=== PATIENT | male | born 1965 | race Caucasian/White ===

== ENCOUNTER 2024-07-10 05:44 | Emergency (ER) | payer BC, SELFPAY ==
[2024-07-10 05:47] VITALS: BP 154/90
[2024-07-10 06:15] VITALS: BMI 23.9
[2024-07-10 06:18] VITALS: BP 140/94
--- NOTE | 2024-07-10 06:20 | ED.GENMED ---
History of Present Illness
General
Chief Complaint: Facial Problem
Time Seen by Provider: 07/10/24 06:20
History of Present Illness
History of Present Illness:
TIME OF INITIAL ENCOUNTER: 6:25 AM
HPI: The patient presents due to severe pain to the right side of the face. He has had similar but less severe symptoms in the past and saw an ENT doctor he did a CAT scan he thought maybe symptoms could be related sinusitis. He has not seen a
neurologist in the past he has not been diagnosed with trigeminal neuralgia in the past. He is not taking anything for this pain. He did take 2 Motrin earlier today. The pain worsens with attempted movement of the right side of the face. He
describes the pain as an electrical shock kind of pain. In the past his symptoms were related to eating, his symptoms were set up today by brushing his teeth.
EXAM:
GENERAL: Well appearing but appears somewhat uncomfortable, athletic build
HEENT: Moist oral mucosa, there is no significant tenderness to palpation of the right side of the face however it is noted when he attempts to move the right side of his face he does have increased pain
CARDIOVASCULAR: No murmurs, normal heart rate, regular rhythm, No chest wall tenderness
PULMONARY: No respiratory distress, breath sounds are clear and equal
ABDOMEN: Soft with no peritoneal signs, no tenderness
NEUROLOGIC: Excellent strength all extremities, no coordination deficits
PSYCHIATRIC: Appropriate mental status, normal insight and judgement
EXTREMITIES: Nontender, no edema, moves all extremities equally
SKIN: No rash, no lesions
NUMBER AND COMPLEXITY OF PROBLEMS ADDRESSED AT THE ENCOUNTER
� Chronic conditions affecting care: Hyperlipidemia
� Acute Exacerbation and/or Progression of Chronic Illness: This is an acute problem
� Differential Diagnosis includes: Trigeminal neuralgia, Pierre's palsy, nonspecific neuralgia
AMOUNT AND/OR COMPLEXITY OF DATA TO BE REVIEWED AND ANALYZED
� I performed an independent evaluation of and my interpretation is:
EKG:
CT:
X-rays:
Laboratory Studies: White count 4.7, hemoglobin normal, chemistries unremarkable
Other:
� Review of other/old records: The patient had a colonoscopy in April 2021
� Clinical information was obtained by an independent historian: None needed
� Prescriptions/Medications Considered but not given:
� Further testing considered but not performed:
RISK OF COMPLICATIONS AND/OR MORBIDITY OR MORTALITY OF PATIENT MANAGEMENT
� Social determinants of health affecting care: Lives at home
� Discussion with other providers:
� Escalation of care including admission/observation vs risk of discharge considered: Based on symptoms, suspect trigeminal neuralgia, will start carbamazepine and we also give a dose of Toradol. Basic labs checked as well.
ANY OTHER UPDATES:
7:15 AM: Suspect trigeminal neuralgia. Some improvement on reassessment. I have given him contact information for neurology/neurosurgery.
Past History
Social History
Tobacco: Non-smoker
Personal:
Living: with family
Employment: Employed
Phy Exam
Physical Exam
Physical Exam:
See HPI
Course
Orders/Labs/Results
Orders:
Orders
07/10/24 06:26
Carbamazepine [Tegretol] 200 mg PO NOW STA
Ketorolac [Toradol] 15 mg IV NOW STA
07/10/24 06:27
Complete Blood Count/With Diff Urgent
Comprehensive Metabolic Panel Urgent
Abnormal Lab Results
07/10/24
06:27
WBC 4.7 L 10^3/uL
(4.8-10.8)
MCH 31.1 H pg
(27.0-31.0)
Monocytes % 10.5 H %
(1.7-9.3)
Chloride 97 L mmol/L
(98-107)
Glucose 113 H mg/dl
(70-99)
Albumin 5.1 H g/dl
(3.5-5.0)
07/10/24 06:27
07/10/24 06:27
Vital Signs
Initial and Last Documented VS:
Initial Vital Signs
Temp Pulse Resp BP Pulse Ox
36.7 C 84 22 154/90 100
07/10/24 05:47 07/10/24 05:47 07/10/24 05:47 07/10/24 05:47 07/10/24 05:47
Last Documented Vital Signs
Temp Pulse Resp BP Pulse Ox
36.7 C 84 22 140/94 100
07/10/24 05:47 07/10/24 05:47 07/10/24 05:47 07/10/24 06:18 07/10/24 06:19
*Critical Care Note
Total Time (30-74mins, 75-104mins- exclusive of procedures): Not Applicable
ED Attending Note
-
Portions of this chart may have been created with voice recognition software.� Occasional wrong word or��sound alike� substitutions may have occurred due to the inherent limitations of voice recognition software.
Discharge Plan
Departure
Prescriptions:
No Action
hydrocodone-acetaminophen 7.5 MG/750 MG tablet
1 tab PO Q4HPRN PRN (Reason: PAIN) Qty: 20 0RF
diazepam 5 MG tablet
10 mg PO BIDPRN PRN (Reason: MUSCLE SPASM/TIGHTNESS) Qty: 30 0RF
Referrals:
Rahul Mccarthy MD [Family Provider] -
Interventions
Interventions:
*Risk Screen - Suicide Last Done: 07/10/24 05:47
*General Assessment Last Done: 07/10/24 06:15
*Neglect/Abuse Screening Last Done: 07/10/24 05:47
*ED- Fall Risk Assessment Last Done: 07/10/24 06:15
*ED COVID-19 Vaccine History Last Done: 07/10/24 06:15
ED- Neurological Assessment Last Done: 07/10/24 06:15
ED-Skin Assessment Last Done: 07/10/24 06:15
Discharge Date and Time
Print Language: YORUBA
[2024-07-10] MEDS: TEGRETOL 200 MG PO (06:30)
[2024-07-10] MEDS: TORADOL 15 MG IV (06:30)
[2024-07-10 06:32] LABS: % Basophils 1.1 % (0-2); % Eosinophils 4.4 % (0-6); % Immature Granulocytes 0.2 % (0-0.5); % Lymphocytes 27.2 % (20.5-51.1); % Monocytes 10.5 % (1.7-9.3); % Neutrophils 56.6 % (42.2-75.2); Absolute Basophils 0.1 10^3/uL (0-0.2); Absolute Eosinophils 0.2 10^3/uL (0-0.7); Absolute Lymphocytes 1.3 10^3/uL (1.2-3.4); Absolute Monocytes 0.5 10^3/uL (0.1-0.6); Absolute Neutrophils 2.7 10^3/uL (1.4-6.5); Hematocrit 44.4 % (39.0-52.0); Mean Corp Hgb Conc. 33.8 g/dL (33.0-37.0); Mean Corpuscular Hgb 31.1 pg (27.0-31.0); Mean Corpuscular Volume 92.1 fL (80.0-94.0); Mean Platelet Volume 9.3 fL (7.4-10.4); Nucleated Red Blood Cells % 0 % (-); Platelet Count 210 10^3/uL (130-400); Red Blood Cell Count 4.82 10^6/uL (4.70-6.10); Red Cell Dist. Width 12.1 % (11.5-14.5); White Blood Cell Count 4.7 10^3/uL (4.8-10.8)
[2024-07-10 06:54] LABS: ALT (SGPT) 35 U/L (0-50); AST (SGOT) 29 U/L (17-59); Albumin 5.1 g/dl (3.5-5.0); Alkaline Phosphatase 62 U/L (38-126); Blood Urea Nitrogen 15 mg/dl (9-20); Calcium 9.9 mg/dl (8.4-10.2); Carbon Dioxide 28 mmol/L (22-30); Chloride 97 mmol/L (98-107); Estimated Creatinine Clearance 91 ml/min; Glucose 113 mg/dl (70-99); Potassium 4.2 mmol/L (3.5-5.1); Sodium 135 mmol/L (135-145); Total Protein 7.6 g/dl (6.3-8.2); eGFR > 60.00
== END 2024-07-10 07:42 | disposition home or self-care (01) ==
LOC: EMR 05:44
PROVIDERS: EMERGENCY PHYSICIAN Emergency Medicine; FAMILY PHYSICIAN Internal Medicine
DX: R51.9 Headache, unspecified (principal); E78.5 Hyperlipidemia, unspecified
CPT/HCPCS: 96374; 99284; 80053; 85025

== ENCOUNTER → 2024-09-21 13:07 | Outpatient (REF) | payer BC, SELFPAY | LOC: MRI 13:07 | PROVIDERS: ATTENDING PHYSICIAN Nurse Practitioner Family; FAMILY PHYSICIAN Internal Medicine | DX: G50.0 Trigeminal neuralgia (principal); K11.8 Other diseases of salivary glands | CPT/HCPCS: 70544 ==

== ENCOUNTER → 2024-09-22 10:31 | Outpatient (REF) | payer BC, SELFPAY | LOC: MRI 10:31 | PROVIDERS: ATTENDING PHYSICIAN Nurse Practitioner Family; FAMILY PHYSICIAN Internal Medicine | DX: G50.0 Trigeminal neuralgia (principal); K11.8 Other diseases of salivary glands | CPT/HCPCS: 70553; A9575 ==

== ENCOUNTER → 2025-03-27 12:29 | Outpatient (REF) | payer BC, SELFPAY | LOC: HWEVLT 12:29 | PROVIDERS: ATTENDING PHYSICIAN Radiology Vascular & Interventional Radiology | DX: I83.891 Varicose veins of right lower extremity with other complications (principal) | CPT/HCPCS: 93971 ==